=== PATIENT | female | born 1945 | race Caucasian/White ===

== ENCOUNTER 2021-08-12 07:00 | Day surgery (SDC) | payer MEDICARE, OTHER ==
[~2021-08-12] VITALS: Ht 157.5 cm; Wt 84.5 kg
[~2021-08-12 07:00] MED LIST: COZAAR100 MG PO; FISH OIL 1,3601 EAC1 PO; HYDROCHLOROTHIA25 MG PO; METOPROLOL SUC200 MG PO; MULTI VITAMIN1 EACH PO; PLAVIX75 MG PO; VITAMIN D325 GM MISC; ZINC50 M2 PO
--- NOTE | 2021-08-12 09:26 | NUR ---
0830 PT RESTING COMFORATLY, CALL LIGHT WITHIN REACH,
--- NOTE | 2021-08-12 09:27 | NUR ---
PT RESTING IN BED CALL LIGHT WITHIN REACH. I LET HER KNOW IT SHOULD NOT BE MUCH LONGER BEFORE MILK VENDOR COMES TO TALK TO HER.
--- NOTE | 2021-08-12 11:32 | NUR ---
08/12/21 1132 Breanne Alvares 1104 PT ARRIVED IN PACU SLEEPY WITH NO C/O'S. 1105 RN NOTED SMALL CUT ON RIGHT SIDE OF BOTTOM LIP IN MOUTH. 1120 DR AT BEDSIDE TALKING WITH PT. ALL QUESTIONS ANSWERED. 1130 RESTING. REU.
--- NOTE | 2021-08-12 12:00 | NUR ---
1150: PATIENT BACK IN DAY SURGERY ROOM FROM PACU. DENIES PAIN. DENIES NAUSEA. ICE WATER GIVEN TO PATIENT. VS CHECKED. PERIPAD IN PLACE WITH SCANT AMOUNT OF RED DRAINAGE. IV SITE WNL. SCDs ON. LUNCH ORDERED FOR PATIENT. CALL LIGHT WITHIN REACH.
--- NOTE | 2021-08-12 12:44 | NUR ---
DISCHARGE INSTRUCTIONS GIVEN TO PATIENT. PATIENT C/O HEADACHE. MEDICATED FOR HEADACHE WITH IBUPROFEN. LUNCH HERE. CALL LIGHT WITHIN REACH.
--- NOTE | 2021-08-12 13:41 | NUR ---
1300: VS CHECKED. PATIENT TOLERATED LUNCH. ASSISTED PATIENT OOB AND TO BATHROOM. GAIT STEADY. VOID WITHOUT DIFFICULTY. GAIT STEADY BACK TO ROOM. IV DC'DC WNL. TIP INTACT. DRESSING APPLIED. PATIENT GETTING DRESSED. 1320: PATIENT DISCHARGED TO HOME VIA WHEELCHAIR WITH FRIEND.
--- NOTE | 2021-08-12 21:09 | OR ---
[facility] [address] [place], [place] [address] Signed DATE OF OPERATION: 08/12/2021 SURGEON: Joyce Cochran MD PREOPERATIVE DIAGNOSES: Endometrial polyp, cervical polyp. POSTOPERATIVE DIAGNOSES: Endometrial polyp, cervical polyp, pending pathology. PROCEDURE: Hysteroscopy, resection of polyps, removal of cervical polyp. ANESTHESIA: General, MAC. ESTIMATED BLOOD LOSS: Minimal. DRAINS: None. INDICATIONS AND FINDINGS: The patient is a 76-year-old female, who has developed hirsutism over the last several months with elevated serum androgens, but during the course of her evaluation, was also found to have a very thickened endometrium. Endometrial biopsy in the office was benign other than showing an endometrial polyp. She now is being evaluated for this. At the time of surgery, her exam did reveal a slightly enlarged clitoris. There was excessive hair growth on the midline of the abdomen. The uterus itself was top-normal size. It sounded to 9 cm. There were multiple polyps within the uterus. There was also a small cervical polyp. DESCRIPTION OF PROCEDURE: The patient was prepped and draped in the dorsal lithotomy position. A weighted speculum was placed. The anterior lip of the cervix was visualized and grasped with a single-tooth tenaculum. The cavity was sounded to 9 cm. The endocervical canal was then dilated to a #10 dilator. The MyoSure device was placed. The cavity was evaluated and it was felt that the MyoSure Lite would be helpful. This was introduced and the multiple polyps were excised. Following this procedure, the cervical polyp was removed with biopsy forceps. There was no evidence of any ongoing bleeding. The tenaculum was Electronically Signed By: JOYCE COCHRAN MD 08/12/21 2109 PATIENT NAME: CRISTINA CARNEY OPERATIVE REPORT DATE OF : 47 REPORT #: [id number] PHYSICIAN: JOYCE COCHRAN MD PCP: NICHOLE MART MD REPORT IS CONFIDENTIAL AND NOT TO BE RELEASED WITHOUT AUTHORIZATION [facility] [address] [place] [address] Signed removed and there was no evidence of bleeding from the tenaculum site. The procedure was terminated. All sponge and needle counts were correct. She tolerated the procedure well and was taken to the recovery room in good condition. Joyce Cochran MD PJW/MODL /[id number] cc: Dr. Nichole Mart Copies: ~ Electronically Signed By: JOYCE COCHRAN MD 08/12/21 2109 PATIENT NAME: CRISTINA CARNEY OPERATIVE REPORT DATE OF : 47 REPORT #: [id number] PHYSICIAN: JOYCE COCHRAN MD PCP: NICHOLE MART MD REPORT IS CONFIDENTIAL AND NOT TO BE RELEASED WITHOUT AUTHORIZATION
--- NOTE | 2021-08-13 21:25 | EKG ---
[facility] [address] [facility] [place], [place] [address] Signed Sinus bradycardia Otherwise normal ECG No previous ECGs available Confirmed by KATE CLEMENTE DO ([id number]) on 08/13/2021 9:25:05 PM Electronically Signed By: KATE CLEMENTE DO 08/13/212124 PATIENT NAME: CRISTINA CARNEY Electrocardiogram DATE OF : 47 PHYSICIAN: KATE CLEMENTE DO REPORT #: [id number] REPORT IS CONFIDENTIAL AND NOT TO BE RELEASED WITHOUT AUTHORIZATION
--- NOTE | 2021-08-20 08:40 | PATH ---
[facility] [address] [facility] [place] [address] Signed SPECIMEN(S): A CERVICAL POLYP SPECIMEN(S): B ENDOMETRIAL POLYP SPECIMEN SOURCE: A. CERVICAL POLYP B. ENDOMETRIAL POLYP CLINICAL HISTORY: Uterine polyp, cervical polyp FINAL PATHOLOGIC DIAGNOSIS: A. Cervix, polypectomy: - Benign endocervical polyp; negative for dysplasia. B. Endometrium, polypectomy: - Endometrial polyp with a small focus of complex hyperplasia with atypia, see comment. COMMENT: B) An immunohistochemical stain for p53 demonstrates weak patchy positivity in the area of concern, and the Ki-67 index is low. These finding support the above interpretation. This case was reviewed in consultation with a gynecologic pathologist. BRP:SL:cml:C2NR MICROSCOPIC EXAMINATION: Histologic sections of all submitted blocks are examined by light microscopy. These findings, together with the gross examination, support the pathologic diagnosis. GROSS DESCRIPTION: Two specimens are received in two containers, labeled "CC." A. The specimen, labeled "CC, A," and designated on the requisition "cervical polyp," is received in formalin and consists of one stearns-pink polypoid tissue fragment with clot material measuring 0.7 x 0.5 x 0.3 cm. Polyp is bisected longitudinally and specimen is entirely submitted in cassette A1. B. The specimen, labeled "CC, B," and designated on the requisition "endometrial polyp," is received in formalin and consists of multiple stearns-pink soft tissue fragments measuring 4.0 x 2.5 x 0.6 cm in aggregate. Specimen is filtered and entirely submitted in cassettes B1-B2. AT (under the direct supervision of a pathologist) PATIENT NAME: CRISTINA CARNEY PATHOLOGY DATE OF : 47 REPORT #: [id number] PHYSICIAN: CORNELIO PATHOLOGY PCP: RUIZ VELÁSQUEZ MD REPORT IS CONFIDENTIAL AND NOT TO BE RELEASED WITHOUT AUTHORIZATION [facility] [address] [place], [place] [address] Signed The Gross Description was prepared using a voice recognition system. The report was reviewed for accuracy; however, sound-alike word errors, addition and/or deletions may occur. If there is any question about this report, please contact Client Services. ADDITIONAL NOTES: Immunohistochemical and/or in situ hybridization studies were performed on this case with the appropriate positive controls that react as expected. This test was developed and its performance characteristics determined by [facility]. It has not been cleared or approved by the U.S. Food and Drug Administration. The FDA has determined that such clearance or approval is not necessary. This test is used for clinical purposes. It should not be regarded as investigational or for research. [facility] is certified under the Clinical Laboratory Improvement Amendments of 1988 (CLIA) as qualified to perform high complexity clinical laboratory testing. This assay has not been validated for specimens that have been decalcified. PERFORMING LABORATORY: The technical component was performed by [facility], [address] [place] [id number] (Palliative Care Nurse Practitioner: Soraya Ramírez MD; CLIA# [id number]). [facility], [address] [address] (CLIA# [id number]). Diagnostician: Tremaine Chawla MD Pathologist Electronically Signed 08/20/2021 Copies: ~ PATIENT NAME: CARNEYCRISTINA PATHOLOGY DATE OF : 47 REPORT #: [id number] PHYSICIAN: CORNELIO ALARCON PCP: RUIZ VELÁSQUEZ MD REPORT IS CONFIDENTIAL AND NOT TO BE RELEASED WITHOUT AUTHORIZATION
== END 2021-08-12 13:21 | disposition home or self-care (01) ==
LOC: DS 07:00
PROVIDERS: ATTEND Obstetrics & Gynecology
PROC: 0UB98ZX Excision of Uterus, Via Natural or Artificial Opening Endoscopic, Diagnostic (ICD-10-PCS; 2021-08-12)
PROC: 0UBC8ZX Excision of Cervix, Via Natural or Artificial Opening Endoscopic, Diagnostic (ICD-10-PCS; principal; 2021-08-12 10:45)
DX: N84.1 Polyp of cervix uteri (principal); N84.0 Polyp of corpus uteri; L68.0 Hirsutism; E66.09 Other obesity due to excess calories; Z68.34 Body mass index [BMI] 34.0-34.9, adult; I10 Essential (primary) hypertension; F17.210 Nicotine dependence, cigarettes, uncomplicated; Z88.8 Allergy status to other drugs, medicaments and biological substances
CPT/HCPCS: 00952; 88305; 88341; 88342; 93005; 93010; A9270; J1100; J1885; J2405; J2704; J2765; J3010; J7121

== ENCOUNTER 2021-09-16 06:00 | Day surgery (SDC) | payer MEDICARE, OTHER ==
[~2021-09-16] VITALS: Ht 157.5 cm; Wt 85.0 kg
[~2021-09-16 06:00] MED LIST changes: +PRAVASTATIN SOD20 MG PO; +VITAMIN D350 MC3 PO
--- NOTE | 2021-09-16 10:16 | NUR ---
09/16/21 1016 Marjorie Cobian 1008-PATIENT ARRIVED TO PACU ON 6L MASK RR EVEN. PATIENT REACTIVE TO VERBAL STIMULI EYES OPEN. 3 LAP SITES TO ABDOMEN CDI WILSON CATHETER DRAINING TO GRAVITY YELLOW URINE. 1010-PATIENT SHAKES HEAD NO TO PAIN OR NAUSEA. PATIENT REMAINS VERY DROWSY FALLS BACK ASLEEP. ENCOURAGED TO TAKE DEEP BREATHES.
--- NOTE | 2021-09-16 11:02 | NUR ---
PATIENT BACK TO DAYSURGERY, BEDSIDE REPORT FROM [facility] FREITAS. PATIENT GRUNTING, REPORTS LOWER ABDOMEN PAIN. PACU NURSE REPORTS THIS IS AWAKE THE PATIENT HAS BEEN SINCE COMING FROM [place]. PATIENT TOLERATED APPLESAUCE WELL, ADMINISTERED 1 TAB PERCOCET. WILL HOLD SECOND TAB SECONDARY TO PATIENT NOT SURE HOW SHE RESPONDS TO NARCOTICS, AND REASSES PAIN FOR EFFECTIVENESS. DRESSING TO PUNCTURE SITES C/D/I. PATIENT GRIMACES HOLDING STOMACH. VSS. CALL LIGHT WTIHIN REACH.
--- NOTE | 2021-09-16 11:22 | NUR ---
PATIENT REPORTS PAIN IMPROVED TO 4/10 ON PAIN SCALE, ADMINISTERED 2ND TAB OF PERCOCET. REMOVED WILSON CATHETER. PATIENT STATES " THIS HURTS, BUT IT'S BETTER THAN IT WAS". CALL LIGHT WITHIN REACH. NO OTHER NEEDS AT THIS TIME.
--- NOTE | 2021-09-16 12:20 | NUR ---
PATIENT APPEARS TO BE RESTING WITH EYES CLOSED, APPEARS CALM. PATIENT REPORTS PAIN CONTROLLED 2/10 ON PAIN SCALE. DRESSING TO SURGICAL LAP SITES C/D/I. PATIENT REPORTS MAY BE ABLE TO GET UP AND VOID SOON. CALL LIGHT WITHIN REACH NO OTHER NEEDS AT THIS TIME.
--- NOTE | 2021-09-16 13:32 | NUR ---
PATIENT UP TO BATHROOM REPORTS PAIN LESS THAN 2/10 ON PAIN SCALE. APPEARS STEADY ON FEET. VOIDED 250 ML OF URINE, BLOOD TINGED. BLADDER SCAN PVR 150 ML. PATIENT REPORTS SHE FEELS GOOD ABOUT GOING HOME. CALL TO DR. BEACH, WHO VERBALIZED PATIENT SHOULD START PLAVIX TOMORROW, AND OKAYED FOR PATIENT TO GO HOME.
--- NOTE | 2021-09-16 13:48 | NUR ---
PT ALERT, ORIENTED AND SITTNG ON SIDE OF BED. PT FEELS INFORMED ALL QUESTIONS ASKED ANSWERED. DR BEACH IN, GAVE BLESSING AND WILL FOLLOW NEEDED
--- NOTE | 2021-09-16 14:11 | NUR ---
PROVIDED PATIENT WITH DISCHARGE INSTRUCTION, ANSWERED QUESTIONS AND CONCERNS. THEN PROVIDED PATIENT WITH WHEELCHAIR RIDE OUT TO CAR. PATIENT TRANSFERED WELL. REMINDED PATIENT PERSCRIPTION IS IN FOLDER.
--- NOTE | 2021-09-17 17:39 | OR ---
[facility] [address] [place], [place] [address] Signed DATE OF OPERATION: 09/16/2021 SURGEON: Joyce Cochran MD PREOPERATIVE DIAGNOSIS: Complex atypical hyperplasia (EIN). POSTOPERATIVE DIAGNOSIS: Complex atypical hyperplasia (EIN), pending pathology. PROCEDURES: 1. Total laparoscopic hysterectomy with bilateral salpingo-oophorectomy. 2. Cystoscopy. ANESTHESIA: General ET. ESTIMATED BLOOD LOSS: 50 mL. DRAINS: Jimenez catheter. FILLING STATION EQUIPMENT MECHANIC: Hawk Rodriguez M.D. INDICATIONS AND FINDINGS: The patient is a 76-year-old female, who has developed increasing hirsutism over the last six months. An evaluation did reveal elevated male hormone levels. CT scan, however, was negative. Ultrasound of her uterus was also normal except for a very thickened endometrium. She had an endometrial biopsy which revealed a polyp. She subsequently underwent hysteroscopy with resection of multiple polyps which returned as complex atypical hyperplasia which is a precancerous lesion. She was counseled and the decision made to proceed with definitive treatment with hysterectomy and removal of tubes and ovaries. At the time of surgery, exam under anesthesia revealed a top normal sized uterus. The tubes showed evidence of prior tubal ligation. Her ovaries were normal. DESCRIPTION OF PROCEDURE: The patient was prepped and draped in the dorsal lithotomy position. A weighted Electronically Signed By: JOYCE COCHRAN MD 09/17/21 1739 PATIENT NAME: CRISTINA CARNEY OPERATIVE REPORT DATE OF : 47 REPORT #: [id number] PHYSICIAN: JOYCE COCHRAN MD PCP: RUIZ VELÁSQUEZ MD REPORT IS CONFIDENTIAL AND NOT TO BE RELEASED WITHOUT AUTHORIZATION [facility] [address] [place], [place] [address] Signed speculum was placed. The anterior lip of the cervix was visualized and grasped with a single-tooth tenaculum. The cavity was sounded to 11 cm. The endocervical canal was then slightly dilated and a VCare cannula inserted and the balloon inflated at the fundus. The tenaculum and speculum removed and the cup was fitted over the cervix and a locking cap fitted into place. Attention was then directed above. The infraumbilical area was injected with 0.5% Marcaine plain. An incision was made with a knife and each layer was serially elevated and incised until the fascia was opened and identified. Stay sutures were placed on the fascia. The peritoneum was opened bluntly. The Mccurdy was placed and tied into place and the balloon inflated. Placement of the scope confirmed proper positioning. CO2 was then introduced into the abdomen. The secondary ports were then placed laterally. These were placed slightly below the level of the umbilicus and lateral. Each of these areas was transilluminated, injected with the Marcaine, incision made with a knife, and trocars placed under direct vision. The left port was a 5 mm port. The right was Veress needle, followed by the expanding port. Following this, the pelvis was evaluated and the planned procedure appeared appropriate. The LigaSure [place] device was then used to serially coagulate and divide the patient's left infundibulopelvic ligament. A 0-PDS Endoloop was then placed over the infundibulopelvic ligament to aid further in hemostasis. Further dissection was done down along the mesosalpinx and broad ligament. A second endoloop was placed slightly below the first as it appeared that the infundibulopelvic ligament may not have been completely surrounded by the Endo loop. Following this, the further dissection was done and the round ligament was serially coagulated and divided. Anterior leaf of the peritoneum was then allowing for development of the partial bladder flap. The posterior peritoneum was taken down as well. The uterine vessels were skeletonized and coagulated multiple times and divided. Further dissection was done both posteriorly and anteriorly. Attention was then directed to the patient's right side. The infundibulopelvic ligament was again identified and coagulated and divided multiple times. Following this, the 0-PDS Endo-loop was placed for hemostasis. The mesosalpinx and broad ligament were serially coagulated and divided. The round ligament was serially coagulated and divided. The anterior leaf of the peritoneum was then taken down further allowing for completion of the bladder flap. The peritoneum was taken down posteriorly as well. The uterine vessels were then coagulated multiple times and divided. Further dissection was done both posteriorly and anteriorly and the cup could be felt at that point. A little more dissection was done around the patient's left uterine vessel area. Following this, it was felt that the specimen could be removed. The Sonicision device was used to separate the specimen from the vaginal cuff. This was begun posteriorly and wrapped around on the left side anteriorly and again posteriorly and wrapped around the right side anteriorly. Following this, the specimen was retrieved vaginally intact. A glove with a wet lap was placed into the vagina allowing for recreation of the pneumoperitoneum. Attention was directed above and the pelvis was thoroughly evaluated and irrigated. There was some bleeding points near the left and the right uterine vessel areas and these were coagulated using the LigaSure device. The Electronically Signed By: JOYCE COCHRAN MD 09/17/21 1739 PATIENT NAME: CRISTINA CARNEY OPERATIVE REPORT DATE OF : 47 REPORT #: [id number] PHYSICIAN: JOYCE COCHRAN MD PCP: RUIZ VELÁSQUEZ MD REPORT IS CONFIDENTIAL AND NOT TO BE RELEASED WITHOUT AUTHORIZATION [facility] [address] [place], [place] [address] Signed remaining bleeding appeared to be from posterior cuff. The Endostitch was then used to close the vaginal cuff. This was begun at the patient's right uterosacral ligament, taking care to incorporate the vaginal mucosa both posteriorly and anteriorly and running to the patient's left uterosacral ligament and back to the center. Following this, the pelvis was re-evaluated and there was a raw area over the defect in the peritoneum on the patient's right side. The LigaSure device was used to coagulate along the peritoneal edges. The infundibulopelvic ligament did appear to be hemostatic. The pelvis otherwise appeared slightly raw, but otherwise without any active bleeding. Tisseel was then used, however, to spray over the cuff and the defects in the peritoneum to further aid in hemostasis. Following this, the instruments were removed from the abdomen after allowing as much CO2 as possible to escape. The fascial incision of the umbilicus was re-identified and closed with a running suture of 0-Vicryl. The skin incisions were closed with subcuticular sutures of 3-0 Vicryl Rapide. Attention was directed down below and the vaginal pack was removed. The Jimenez was removed and cystoscopy was done. She had received IV fluorescein. A 30-degree scope was used and the bladder evaluated. There was moderate metaplasia noted over the trigone. Both ureteral orifices were easily identified with free spill of urine bilaterally. No fluorescein was seen during this time, however. There was no abnormality within the bladder otherwise. The bladder was drained and the Jimenez catheter replaced. All sponge and needle counts were correct. She tolerated the procedure well and was taken to the recovery room in good condition. Joyce Cochran MD PJW/MODL /[id number] cc: MD Hawk Degroot MD Copies: HAWK RODRIGUEZ MD ~ Electronically Signed By: JOYCE COCHRAN MD 09/17/21 1739 PATIENT NAME: CRISTINA CARNEY OPERATIVE REPORT DATE OF : 47 REPORT #: [id number] PHYSICIAN: JOYCE COCHRAN MD PCP: RUIZ VELÁSQUEZ MD REPORT IS CONFIDENTIAL AND NOT TO BE RELEASED WITHOUT AUTHORIZATION
--- NOTE | 2021-09-18 11:39 | PATH ---
[facility] [address] [place], [place] [address] Signed SPECIMEN(S): A UTERUS, CERVIX, BILAT TUBES AND OVARIES SPECIMEN SOURCE: A. UTERUS, CERVIX, BILAT TUBES AND OVARIES ` CLINICAL HISTORY: Complex endometrial hyperplasia with atypia. TLH, BSO, cysto. FINAL PATHOLOGIC DIAGNOSIS: Uterus with bilateral fallopian tubes and ovaries, hysterectomy and bilateral salpingo-oophorectomy: - Uterus: - Inactive endometrium with cystic atrophy; no residual complex atypical hyperplasia identified. - Leiomyoma. - Cervix with no significant pathologic changes. - Ovaries: - Right ovary with a stromal luteoma. - Left ovary with an ovarian fibroma. - Fallopian tubes: - Bilateral fallopian tubes with paratubal cysts. BRP:cml:C2NR MICROSCOPIC EXAMINATION: Histologic sections of all submitted blocks are examined by light microscopy. These findings, together with the gross examination, support the pathologic diagnosis. GROSS DESCRIPTION: The specimen, labeled "SanchezCristina," and designated on the requisition "cervix; uterus bilateral tubes and bilateral ovaries," is received in formalin and consists of 140 gram uterus and cervix with bilateral adnexa. The uterus is 4.6 x 4.7 x 9.6 cm (cornu-cornu x anterior-posterior x fundus-ectocervix). The serosal surface is pink-stearns smooth. The anterior surface is inked blue and the posterior surface is inked black. The parametrial soft tissue is shaved. The ectocervical mucosa is pale pink and smooth. Serial sectioning of the cervix fails to demonstrate any gross abnormalities. The triangular endometrial cavity is lined by a pink smooth, focally congested endometrium that has an average thickness of 0.2 cm. No mass lesions are PATIENT NAME: CRISTINA SANCHEZ PATHOLOGY DATE OF : 47 REPORT #: [id number] PHYSICIAN: CORNELIO PATHOLOGY PCP: RUIZ VELÁSQUEZ MD REPORT IS CONFIDENTIAL AND NOT TO BE RELEASED WITHOUT AUTHORIZATION [facility] [address] [place], [place] [address] Signed grossly identified. Sectioning through the uterus reveals an ill-defined endomyometrium junction and the opposite pink, well circumscribed intramural nodules that measure 0.7 and 1.6 cm in greatest dimension. The endometrium is entirely submitted for histologic examination. The left tubo-ovarian complex has two segments of fallopian tubes that measure 4.0 x 1.2 cm and 2.2 x 0.7 with delicate fimbriae. The serosa is violaceous and smooth. Cut sections reveal a 0.4 lumen. The 2.7 x 1.8 x 1.6 cm ovary has a white-stearns cerebriform external surface. Serial sectioning reveals a pink-white, variegated ovarian parenchyma with one white stearns, well circumscribed rubbery nodule. The nodule has a white whorled cut surface. The right tubo-ovarian complex has two segments of fallopian tube that measure 3.1 x 0.7 cm and 3.6 x 0.7 cm. The serosa is violaceous and smooth with delicate fimbriae and paratubal cysts. Cut sections reveal a pinpoint lumen. The 5.1 x 3.7 x 2.4 cm ovary has pink-white cerebriform external surface. Sectioning reveals a pink-white variegated ovarian parenchyma with one orange-brown solid nodule that is 3.7 x 3.1 x 2.6 cm. Briquette Machine Operator sections are submitted in 22 cassettes. Cassette summary: (A1) anterior cervix and lower uterine segment (endometrial edge inked green) (A2) posterior cervix and lower uterine segment (endometrial edge inked green) (A3) anterior uterine wall (A4-A6) anterior endomyometrium (A7) intramural nodule (A8-A12) posterior uterine wall (A13-A14) posterior endomyometrium (A15-A17) left tubo-ovarian complex with nodule (A18-A22) right tubo-ovarian complex with nodule. FB (under the direct supervision of a pathologist) The Gross Description was prepared using a voice recognition system. The report was reviewed for accuracy; however, sound-alike word errors, addition and/or deletions may occur. If there is any question about this report, please contact Client Services. PERFORMING LABORATORY: The technical component was performed by [facility], [address] [place] [id number] ([employer]: Soraya Ramírez MD; CLIA# [id number]). Professional interpretation was performed by PATIENT NAME: CRISTINA SANCHEZ PATHOLOGY DATE OF : 47 REPORT #: [id number] PHYSICIAN: CORNELIO ALARCON PCP: RUIZ VELÁSQUEZ MD REPORT IS CONFIDENTIAL AND NOT TO BE RELEASED WITHOUT AUTHORIZATION [facility] [address] [place] [address] Signed [facility], [facility], [address] [facility], [address] [address] (CLIA# [id number]). Diagnostician: Tremaine Chawla MD Pathologist Electronically Signed 09/18/2021 Copies: ~ PATIENT NAME: CRISTINA SANCHEZ PATHOLOGY DATE OF : 47 REPORT #: [id number] PHYSICIAN: CORNELIO PATHOLOGY PCP: RUIZ VELÁSQUEZ MD REPORT IS CONFIDENTIAL AND NOT TO BE RELEASED WITHOUT AUTHORIZATION
== END 2021-09-16 13:45 | disposition home or self-care (01) ==
LOC: DS 06:00
PROVIDERS: ATTEND Obstetrics & Gynecology
PROC: 0UT74ZZ Resection of Bilateral Fallopian Tubes, Percutaneous Endoscopic Approach (ICD-10-PCS; 2021-09-16)
PROC: 0UT94ZZ Resection of Uterus, Percutaneous Endoscopic Approach (ICD-10-PCS; principal; 2021-09-16 06:45)
PROC: 0UT24ZZ Resection of Bilateral Ovaries, Percutaneous Endoscopic Approach (ICD-10-PCS; 2021-09-16 06:45)
DX: D27.0 Benign neoplasm of right ovary (principal); D27.1 Benign neoplasm of left ovary; D25.9 Leiomyoma of uterus, unspecified; N83.8 Other noninflammatory disorders of ovary, fallopian tube and broad ligament; N85.02 Endometrial intraepithelial neoplasia [EIN]; Z20.822 Contact with and (suspected) exposure to COVID-19; E66.09 Other obesity due to excess calories; Z68.34 Body mass index [BMI] 34.0-34.9, adult; F17.210 Nicotine dependence, cigarettes, uncomplicated; I10 Essential (primary) hypertension; Z88.8 Allergy status to other drugs, medicaments and biological substances
CPT/HCPCS: 00840; 88307; 88309; 99406; J0131; J0694; J1100; J1644; J1885; J2405; J2704; J2765; J3010; J3475; J7121

== ENCOUNTER 2021-09-26 13:22 | Emergency (ER) | payer MEDICARE, OTHER ==
[~2021-09-26] VITALS: Ht 157.5 cm; Wt 82.5 kg
== END 2021-09-26 18:25 | disposition home or self-care (01) ==
LOC: ED 13:22
DX: N99.820 Postprocedural hemorrhage of a genitourinary system organ or structure following a genitourinary system procedure (principal); N99.840 Postprocedural hematoma of a genitourinary system organ or structure following a genitourinary system procedure; E87.6 Hypokalemia; Z88.8 Allergy status to other drugs, medicaments and biological substances; Z79.899 Other long term (current) drug therapy
CPT/HCPCS: 74177; 80048; 81001; 85025; 87088; 99285-25; Q9967

== ENCOUNTER 2021-10-01 14:22 | Observation (INO) | payer MEDICARE, OTHER ==
[~2021-10-01] VITALS: Ht 157.5 cm; Wt 83.0 kg
--- NOTE | ~2021-10-01 | OR ---
[facility] [address] [facility] [place], [place] [address] Draft DATE OF OPERATION: 10/01/2021 SURGEON: Joyce Cochran MD CIVIL RIGHTS ATTORNEY: Belen Johnson DO PREOPERATIVE DIAGNOSIS: Vaginal cuff bleeding after hysterectomy. POSTOPERATIVE DIAGNOSIS: Vaginal cuff bleeding after hysterectomy. PROCEDURE: Re-exploration of vaginal cuff. ANESTHESIA: General LMA. ESTIMATED BLOOD LOSS: 15 mL. DRAINS: None. INDICATIONS AND FINDINGS: The patient is a 76-year-old female, who underwent a TLH-BSO for endometrial atypical hyperplasia 15 days ago, who has been having intermittent vaginal bleeding more than expected. She was seen in the emergency room on for vaginal bleeding and was found to have a small clot at the cuff. Her vital signs were otherwise stable as was her blood count. She was seen in the office yesterday for her routine postop check and had only a small amount of pink bleeding and had not had any heavy bleeding since her experience; however, today she again called with increasing bleeding and passage of clots. Evaluation in the office of Dr. Johnson revealed a pumper at the left angle. Ultrasound showed the vaginal cuff hematoma to be unchanged. It was felt that the cuff needed to be re-explored and with control of this bleeding. She was taken to the operating room and the cuff was re-evaluated. The vaginal mucosa did appear to be and there was a small defect at the left angle. There was no obvious arterial bleeding, however, at the time of her evaluation. PATIENT NAME: CRISTINA CARNEY OPERATIVE REPORT DATE OF : 47 REPORT #: [id number] PHYSICIAN: JOYCE COCHRAN MD PCP: RUIZ VELÁSQUEZ MD REPORT IS CONFIDENTIAL AND NOT TO BE RELEASED WITHOUT AUTHORIZATION [facility] [address] [place] [id number] Draft DESCRIPTION OF PROCEDURE: The patient was prepped and draped in the dorsal lithotomy position. A weighted speculum was placed and the vaginal cuff was grasped near the left angle with long Allis'. There was a small clot at the left angle which was removed. A rtlcvr-sl-ieubp suture of 0 Vicryl was placed at the left angle. Following this, serial smfxnz-nr-olgnfr were used to reapproximate the vaginal mucosa both posteriorly and anteriorly and this was marched along to the right side. Following this, the vaginal cuff was observed and there was no evidence of any ongoing bleeding. She was taken out of Trendelenburg and again observed and there was no evidence of any ongoing bleeding. At this point, it was felt that she may be better served by observation overnight because of the episodes of bleeding. All sponge and needle counts were correct. She tolerated the procedure well and was taken to the recovery room in good condition. Joyce Cochran MD PJW/MODL /[id number] cc: Belen Johnson DO Copies: ZAWORSKI,BELEN M DO ~ PATIENT NAME: CRISTINA CARNEY OPERATIVE REPORT DATE OF : 47 REPORT #: [id number] PHYSICIAN: JOYCE COCHRAN MD PCP: RUIZ VELÁSQUEZ MD REPORT IS CONFIDENTIAL AND NOT TO BE RELEASED WITHOUT AUTHORIZATION
[~2021-10-01 14:22] MED LIST changes: +FISH OIL 1,001000 MG PO; -FISH OIL 1,3601 EAC1 PO
--- NOTE | 2021-10-01 14:37 | NUR ---
RT COLLECTED RAPID COVID [address] REQUEST USING IN HOUSE LAB WITH NO COMPLICATIONS AT THIS TIME.
--- NOTE | 2021-10-01 16:00 | NUR ---
S/P TROCAR INCISION SITE HEALING WELL WITHOUT SIGNS OR SYMPTOMS OF INFECTION.
--- NOTE | 2021-10-01 16:26 | NUR ---
10/01/21 1626 Pili Black 1623 PATIENT ARRIVES TO PACU RESTING WITH EYES CLOSED. RESPONDS TO VERBAL STIMULI. RESP EVEN AND UNLABORED, ROOM AIR SATS >97%.
--- NOTE | 2021-10-01 18:03 | NUR ---
Pt arrived to L&D from PACU with 18g IV to LAC, pt A&O x 4, no c/o pain or discomfort, no s/sx of distress noted, admission assessment performed, no bleeding noted on deidre pad, pt assisted to bathroom with SBA, scant amount of blood noted on toliet paper, pt steady on feet, instructed pt to use call mackay prior to getting out of bed d/t IVF and SCDs.
--- NOTE | 2021-10-02 07:50 | NUR ---
PT UP TO THE BATHROOM HAS STEADY GAIT, DENIES DIZZINESS. SMALL AMOUNT OF BLEEDING, SMALL CLOTS NOTED WHEN VOIDING. MORINING ASSESSMENT COMPLETED. LUNG SOUNDS CLEAR, STRONG PULSES, BRUISING AROUND INCISION SITES NOTED PT STATES BRUISING IS BETTER THAN YESTERDAY. PT DENIES PAIN. PT ORDERED BREAKFAST AND UPDATED ON THE PLAN FOR THE DAY. PT DENIES NEEDS AT THIS TIME.
--- NOTE | 2021-10-02 09:15 | NUR ---
MORING MEDICATIONS GIVEN, EDUCATION ON SIDE EFFECTS GIVEN TO PT, PT VERBALIZED UNDERSTANDING. PT IV WAS REMOVED, TIP IN TACT, PT TOLERATED WELL. PT UPDATED ON DISCHARGE. PLAN FOR PT SON TO PICK PT UP. PT DENIES DIZZINESS OR NEEDS AT THIS TIME.
[2021-10-02] MEDS ORDERED: ONDANSETRON ODT8 MG PO (10:05)
[2021-10-02] MEDS ORDERED: IBU800 MG PO (10:05)
--- NOTE | 2021-10-02 10:17 | NUR ---
PT SON TO ROOM, PT IS DRESSED, BELONGINGS GATHERED, UPDATED ON PLAN FOR DISCHARGE EDUCATION. PT STATES UNDERSTANDING. PT DENIES DIZZINESS OR NEEDS AT THIS TIME.
[2021-10-02] MEDS ORDERED: PERCOCET 5-3251 EACH PO (10:22)
--- NOTE | 2021-10-02 10:36 | NUR ---
MED REC COMPLETE
--- NOTE | 2021-10-02 11:04 | NUR ---
PT DISCHARGE INSTRUCTIONS GIVEN TO PT AND PT'S SON. PT VERBALIZED UNDERSTANDING OF MEDICATIONS , WHEN TO TAKE THE NEXT DOSES. PT VERBALIZED UNDERSTANDING ON WHEN TO CALL THE DOCTOR. PT WAS GIVEN INFORMATION ON A TLH AND A VAGINAL CUFF. ALL QUESTIONS AND CONCERNS WERE ANSWERED. NO FURTHER QUESTIONS OR CONCERNS FROM PT AND SON.
--- NOTE | 2021-10-02 11:05 | NUR ---
PT DISCHARGED FROM UNIT VIA WHEELCHAIR. ALL PT BELONGINGS WITH PT. PT SON GIVING PT RIDE HOME.
--- NOTE | 2021-10-02 11:34 | NUR ---
PT IS ALERT, ORIENTED AND GETTING READY TO DC. PT DRESSED, WAITING FOR SON TO COME FOR RIDE. GAVE BLESSING, PT ACKNOWLEDGED
== END 2021-10-02 11:05 | disposition home or self-care (01) ==
LOC: DS 14:22 → FBC 17:00 → DS 17:01 → FBC 10-02 11:05 → DS 10-02 11:05
PROVIDERS: ADMIT Obstetrics & Gynecology; ATTEND Obstetrics & Gynecology
PROC: 0UQG7ZZ Repair Vagina, Via Natural or Artificial Opening (ICD-10-PCS; principal; 2021-10-01 14:00)
DX: N99.820 Postprocedural hemorrhage of a genitourinary system organ or structure following a genitourinary system procedure (principal); E66.09 Other obesity due to excess calories; Z68.44 Body mass index [BMI] 60.0-69.9, adult; F17.210 Nicotine dependence, cigarettes, uncomplicated; Z86.73 Personal history of transient ischemic attack (TIA), and cerebral infarction without residual deficits; Y83.8 Other surgical procedures as the cause of abnormal reaction of the patient, or of later complication, without mention of misadventure at the time of the procedure; Z88.8 Allergy status to other drugs, medicaments and biological substances
CPT/HCPCS: 00940; 80048; 85027; C9803; G0378; J0131; J1100; J2001; J2405; J2704; J3010; J7121; U0003

== ENCOUNTER 2022-08-12 14:58 | Emergency (ER) | payer MEDICARE, OTHER ==
[~2022-08-12] VITALS: Ht 157.5 cm; Wt 87.4 kg
[~2022-08-12 14:58] MED LIST changes: +IBU800 MG PO; +ONDANSETRON ODT8 MG PO; +PERCOCET 5-3251 EACH PO
[2022-08-12] MEDS ORDERED: POTASSIUM CHLO15 MEQ (15:43)
--- NOTE | 2022-08-12 17:07 | EKG ---
[facility] [address] [facility] [place], [place] [address] Signed Sinus bradycardia Otherwise normal ECG When compared with ECG of 12-AUG-2021 07:53, No significant change was found Confirmed by SEBASTIEN REINA MD ([id number]) on 08/12/2022 5:06:57 PM Electronically Signed By: SEBASTIEN REINA MD 08/12/22 1707 PATIENT NAME: CRISTINA CARNEY Electrocardiogram DATE OF : 47 PHYSICIAN: SEBASTIEN REINA MD REPORT #: [id number] REPORT IS CONFIDENTIAL AND NOT TO BE RELEASED WITHOUT AUTHORIZATION
== END 2022-08-12 17:40 | disposition home or self-care (01) ==
LOC: ED 14:58
DX: R55 Syncope and collapse (principal); Z88.8 Allergy status to other drugs, medicaments and biological substances; Z79.899 Other long term (current) drug therapy
CPT/HCPCS: 36415; 80053; 83735; 85025; 93005; 93010; 99284-25

== ENCOUNTER 2022-09-14 18:41 | Emergency (ER) | payer MEDICARE, OTHER ==
[~2022-09-14] VITALS: Ht 157.5 cm; Wt 81.7 kg
[~2022-09-14 18:41] MED LIST changes: +POTASSIUM CHLO15 MEQ
[2022-09-14] MEDS ORDERED: VALSARTAN320 MG PO (21:12)
[2022-09-14] MEDS ORDERED: POTASSIUM CHLO10 MEQ PO (21:13)
== END 2022-09-14 22:06 | disposition home or self-care (01) ==
LOC: ED 18:41
DX: U07.1 COVID-19 (principal); I10 Essential (primary) hypertension; Z86.73 Personal history of transient ischemic attack (TIA), and cerebral infarction without residual deficits; Z88.8 Allergy status to other drugs, medicaments and biological substances; Z79.899 Other long term (current) drug therapy; Z79.02 Long term (current) use of antithrombotics/antiplatelets
CPT/HCPCS: 87502; 99284; A9270; U0003

== ENCOUNTER 2022-11-04 16:57 | Emergency (ER) | payer MEDICARE, OTHER ==
[~2022-11-04] VITALS: Ht 157.5 cm; Wt 81.7 kg
[~2022-11-04 16:57] MED LIST changes: +POTASSIUM CHLO10 MEQ PO; +VALSARTAN320 MG PO
== END 2022-11-04 19:57 | disposition home or self-care (01) ==
LOC: ED 16:57
DX: J20.5 Acute bronchitis due to respiratory syncytial virus (principal); I10 Essential (primary) hypertension; Z20.822 Contact with and (suspected) exposure to COVID-19; Z86.73 Personal history of transient ischemic attack (TIA), and cerebral infarction without residual deficits; Z88.8 Allergy status to other drugs, medicaments and biological substances; Z79.899 Other long term (current) drug therapy; Z79.02 Long term (current) use of antithrombotics/antiplatelets
CPT/HCPCS: 71045; 87502; 94640; 94664; 99285-25; A9270; C9803; U0003

== ENCOUNTER 2023-02-16 05:40 | Day surgery (SDC) | payer MEDICARE, OTHER ==
[2023-02-08 10:23] VITALS: BP 117/75
[~2023-02-16] VITALS: Ht 157.5 cm; Wt 87.3 kg
[2023-02-16 05:58] VITALS: BP 109/61
[2023-02-16 08:27] VITALS: BP 113/65
--- NOTE | 2023-02-16 08:42 | OR ---
[facility] [address] [place], [place] [address] Signed DATE OF OPERATION: 02/16/2023 SURGEON: Yessenia Watt MD PREOPERATIVE DIAGNOSES: 1. Personal history of colonic polyps in 2015 at age 69. 2. Mother with colon cancer in her 70s. POSTOPERATIVE DIAGNOSES: 1. Moderate circumferential external hemorrhoids. 2. Minimal internal anal skin tags. 3. Moderate sigmoid diverticulosis. 4. 5 mm polyp at 45 cm in left colon. 5. 4 mm polyp at 4 cm in rectum. PROCEDURE: Colonoscopy with hot biopsy. ESTIMATED BLOOD LOSS: None. INDICATIONS: Cristina is a 78-year-old obese female, asked to see me for a followup colonoscopy. She spoke of possibly three prior colonoscopies. She thinks the 1st two colonoscopies were negative. She had colonic polyps removed during her last colonoscopy around 2014 while living in [place], [place]. She cannot remember the doctor's name. She cannot remember the primary care provider at that time. However, her mother is known to have colon cancer in her 70s. Mother had surgery but did not need chemotherapy nor radiation therapy. Her mother finally at age 93 from dementia. As expected, Cristina comes every five years for repeat colonoscopies. She has no lower GI complaints. In the office, I gave her a pamphlet on colonoscopy. We reviewed the nature of the test. There is risk including, but not limited to gas bloating, crampy abdominal pain, bleeding, perforation requiring surgery, and missed diagnosis. We had also reviewed the written instructions for the bowel prep line by line. She told me the commercial bowel preps were quite terrible. Hopefully, this was much better with Dulcolax, MiraLAX and Gatorade. We asked her to hold the Plavix for five days prior to the procedure. Her other medications would be fine. Also because of her large face, heavy chest and abdomen as well as her previous stroke, we did ask for monitored anesthesia care with propofol infusion. That turned out to work very nicely. She had expressed understanding and wished to proceed. Electronically Signed By: YESSENIA WATT MD 02/16/23 0842 PATIENT NAME: CRISTINA CARNEY OPERATIVE REPORT DATE OF : 47 REPORT #: [id number] PHYSICIAN: YESSENIA WATT MD PCP: NICHOLE VELÁSQUEZ MD REPORT IS CONFIDENTIAL AND NOT TO BE RELEASED WITHOUT AUTHORIZATION [facility] [address] [place], [place] [address] Signed PROCEDURE NOTE: Cristina was taken into our endoscopy suite and placed in the left lateral decubitus position. She was given monitored anesthesia care per our nurse signals officer. A digital rectal exam was performed and she does have moderate circumferential external hemorrhoids. She had good sphincter tone. There were no masses. The adult colonoscope was introduced and advanced all around into the cecum under direct visualization of the camera without difficulty. Her prep was quite excellent. We could easily see the appendiceal orifice and the ileocecal valve. The scope was then slowly withdrawn. We took pictures throughout for photodocumentation. She had two polyps mentioned above, removed with the help of hot biopsy forceps. She also has some diverticula in the left and sigmoid colon. They are moderate in size, moderate in number and scattered about. Upon retroflexion of the scope, she does have just minimal internal anal skin tags, very minimal internal hemorrhoid tissue. After this, the gas was suctioned out and the colonoscope removed. Cristina tolerated the procedure quite well. RECOMMENDATIONS: I will see Cristina back in my office in 7 to 10 days to review her results. It looks like she will stay on the five year plan. Yessenia Watt MD ALB/MODL /[id number] cc: MD Nichole Anderson MD Copies: YESSENIA WATT MD ~ Electronically Signed By: YESSENIA WATT MD 02/16/23 0842 PATIENT NAME: CRISTINA CARNEY OPERATIVE REPORT DATE OF : 47 REPORT #: [id number] PHYSICIAN: YESSENIA WATT MD PCP: NICHOLE VELÁSQUEZ MD REPORT IS CONFIDENTIAL AND NOT TO BE RELEASED WITHOUT AUTHORIZATION
--- NOTE | 2023-02-16 08:48 | NUR ---
PT ALERT, ORIENTED AND RESTING IN DARKENED RM. PT C/O HEADACHE AND RN LUCIO ASSISTED WITH HELPING PT. SENSED SHE WAS DEHYDRATED, GOT IV GOING AND PT IS FEELING MUCH BETTER
== END 2023-02-16 08:38 | disposition home or self-care (01) ==
LOC: OPS 05:40 → DS 05:40 → OPS 07:30 → DS 07:30 → OPS 08:38
PROVIDERS: ATTEND Colon & Rectal Surgery
DX: Z12.11 Encounter for screening for malignant neoplasm of colon (principal); K57.30 Diverticulosis of large intestine without perforation or abscess without bleeding; K63.5 Polyp of colon; K62.1 Rectal polyp; K64.8 Other hemorrhoids; K64.4 Residual hemorrhoidal skin tags; Z86.010 Personal history of colon polyps; Z80.0 Family history of malignant neoplasm of digestive organs; I10 Essential (primary) hypertension; F17.210 Nicotine dependence, cigarettes, uncomplicated; E66.9 Obesity, unspecified; Z68.35 Body mass index [BMI] 35.0-35.9, adult; Z88.8 Allergy status to other drugs, medicaments and biological substances; Z79.899 Other long term (current) drug therapy
CPT/HCPCS: 00811; J2704; J7121

== ENCOUNTER 2025-09-30 16:54 | Emergency (ER) | payer MEDICARE, OTHER ==
[~2025-09-30] VITALS: Ht 157.5 cm; Wt 85.0 kg
--- OUTSIDE RECORDS SUMMARY | ~2025-09-30 | XMS | Continuity of Care Document ---
Demographics + + + | Address | [address] | | | [place] [address] | + + + | Preferred Language | Unknown | + + + | Marital Status | | + + + | Mormonism Affiliation | Unknown | + + + | Race | White | + + + | Ethnic Group | Not or | + + + Author + + + | Author | [facility] | + + + | Organization | [facility] | + + + | Address | [address] | | | [place] [address] | + + + | Phone | | + + + Care Team Providers + + + + | Care Food General Manager Name | Role | Phone | + + + + Unavailable | Unavailable | + + + + Allergies No information. Encounters No information. Functional Status No information. Immunizations No information. Medications + + + + | date | description | facility | + + + + | (no date) | OXYCODONE | [facility] | | | HCL/ACETAMINOPHEN | [facility] | + + + + | (no date) | Ibuprofen | [facility] | | | | [facility] | + + + + | (no date) | CLOPIDOGREL BISULFATE | [facility] | | | | [facility] | + + + + | (no date) | HYDROCHLOROTHIAZIDE | [facility] | | | | [facility] | + + + + | (no date) | ONDANSETRON | [facility] | | | | [facility] | + + + + | (no date) | VALSARTAN | [facility] | | | | [facility] | + + + + | (no date) | Cholecalciferol (Vitamin | [facility] | | | D3) | [facility] | + + + + | (no date) | METOPROLOL SUCCINATE | [facility] | | | | [facility] | + + + + Problems No information. Procedures No information. Results/Labs No information. Social History + + + + | date | description | facility | + + + + | (no date) | Unknown if ever smoked | [facility] | | | | [facility] | + + + + Vital Signs No information."
[2025-09-30] MEDS ORDERED: TRAMADOL HCL 50 MG TAB PO ONE (20:15)
[2025-09-30] MEDS ORDERED: TRAMADOL HCL50 MG PO (21:05)
[2025-09-30] MEDS ORDERED: PREDNISONE20 MG PO (21:05)
[2025-09-30] MEDS ORDERED: TRAMADOL HCL 50 MG HOME.PACK PO ONE (21:15)
[2025-09-30 23:27] VITALS: BP 106/63
== END 2025-09-30 21:43 | disposition home or self-care (01) ==
LOC: ED 16:54
DX: S83.91XA Sprain of unspecified site of right knee, initial encounter (principal); I10 Essential (primary) hypertension; W10.9XXA Fall (on) (from) unspecified stairs and steps, initial encounter; Z79.899 Other long term (current) drug therapy
CPT/HCPCS: 73560; 73700; 99284-25; A9270